=== PATIENT | male | born 1995 | race Hispanic/Latino ===

== ENCOUNTER 2018-01-07 12:41 | Emergency (ER) | payer SELFPAY ==
[2018-01-07] MEDS ORDERED: ONDANSETRON HCL INJ 2 MG/ML VIAL ONE (15:37)
[2018-01-07] MEDS ORDERED: SODIUM CHLORIDE 0.9% 1000ML 1,000 ML ONE (15:37)
[2018-01-07] MEDS ORDERED: PANTOPRAZOLE 40 MG 10ML VIAL ONE (15:41)
--- NOTE | 2018-01-07 18:49 | Diagnostic Imaging Report ---
EXAM: CT Abdomen and Pelvis WITHOUT contrast INDICATION: Pain COMPARISON: None. TECHNIQUE: Abdomen and Pelvis was scanned utilizing a multidetector helical scanner without the use of IV contrast. Coronal and sagittal reformations were obtained. IV CONTRAST: None COMPLICATIONS: None RADIATION DOSE: Total DLP: 606 mGy*cm Estimated effective dose: (DLP x 0.015 x size factor) mSv CTDIvol has been reviewed. It is below the limits set by the Radiation Protocol Committee (RPC). FINDINGS: Abdomen: Lung Bases: No acute findings. Solid Organs: Liver, adrenals, kidneys, spleen, and pancreas unremarkable. Upper GI Tract: No small bowel obstructive changes. Vascularity: No aortic aneurysm. Left SVC incidentally noted. Lymph Nodes: No suspicious adenopathy. Other: None. Pelvis: Bladder: Unremarkable. Other: None. Colon: No acute colonic findings. Appendix not dilated. No periappendiceal inflammation. Bones: No acute findings. IMPRESSION: 1. No acute findings. Signed by: Dr. Diego Shelton MD on 01/07/2018 6:46 PM
[2018-01-07 19:48] LABS: AMPHETAMINES SCREEN,URINE NEGATIVE (NEGATIVE); BENZODIAZEPINES SCREEN,URINE NEGATIVE (NEGATIVE); PHENCYCLIDINE SCREEN,URINE NEGATIVE (NEGATIVE)
[2018-01-07 19:55] LABS: CLARITY,URINE SL CLOUDY (CLEAR); COLOR,URINE YELLOW (YELLOW)
[2018-01-07 19:56] LABS: BILIRUBIN,URINE NEGATIVE (NEGATIVE); KETONES,URINE 2+ (NEGATIVE); LEUKOCYTE ESTERASE ,URINE NEGATIVE (NEGATIVE); NITRITE,URINE NEGATIVE (NEGATIVE); PROTEIN,URINE DIPSTICK NEGATIVE (NEGATIVE); URINE UROBILINOGEN 0.2 mg/dL (0.2 - 1)
[2018-01-07 19:57] LABS: BACTERIA,URINE FEW /HPF; EPITHELIAL CELLS,URINE FEW /LPF; RBC,URINE 0-5 /HPF (0-5)
[2018-01-07 19:58] LABS: ANION GAP 16.8 mmol/L (8-16); BLOOD UREA NITROGEN 10 mg/dL (7-26); BUN/CREATININE RATIO 12 (6-25); CARBON DIOXIDE 24 mmol/L (22-29); CHLORIDE 105 mmol/L (98-107); CREATININE, SERUM 0.86 mg/dL (0.72-1.25); EST GLOMERULAR FILTRATION RATE > 60 ML/MIN (60-); POTASSIUM 3.8 mmol/L (3.5-5.1); SODIUM 142 mmol/L (136-145)
[2018-01-07 19:59] LABS: ALANINE AMINOTRANSFERASE 13 IU/L (0-55); GLUCOSE 104 mg/dL (74-118)
[2018-01-07 20:00] LABS: ALBUMIN/GLOBULIN RATIO 1.9 (0.8-2.0); ALKALINE PHOSPHATASE 53 IU/L (40-150)
[2018-01-07 20:02] LABS: AMYLASE 34 U/L (25-125); LIPASE 18 U/L (8-78)
[2018-01-07 20:05] VITALS: BP 120/91
[2018-01-07 20:05] LABS: BASOPHILS % 0.1 % (0.0-1.0); EOSINOPHILS % 0.3 % (0.0-6.0); HEMATOCRIT 44.4 % (38.2-49.6); HEMOGLOBIN 15.3 g/dL (14.0-18.0); LYMPHOCYTES # (AUTO) 1.9 (1.0-3.2); LYMPHOCYTES % 18.9 % (18.0-39.1); MEAN CORPUSCULAR HEMOGLOBIN 31.4 pg (28-32); MEAN CORPUSCULAR HGB CONC 34.5 g/dL (31-35); MEAN CORPUSCULAR VOLUME 91.2 fL (81-99); MONOCYTES # (AUTO) 0.6 (0.2-0.8); MONOCYTES % 6.5 % (4.4-11.3); NEUTROPHILS # (AUTO) 7.2 (2.1-6.9); NEUTROPHILS % 73.8 % (38.7-80.0); PLATELET COUNT 219 x10e3/uL (140-360); RED BLOOD COUNT 4.87 x10e6/uL (4.3-5.7)
[2018-01-07 20:11] LABS: MAGNESIUM 2.7 MG/DL (1.3-2.1)
== END 2018-01-07 20:21 | disposition home or self-care (01) ==
LOC: ER 15:15
DX: R10.84 Generalized abdominal pain (principal); K29.00 Acute gastritis without bleeding; F12.90 Cannabis use, unspecified, uncomplicated
CPT/HCPCS: 36415; 74176; 80053; 80307; 81001; 82150; 83690; 83735; 85025; 93005; 99284; J2405; J7030

== ENCOUNTER 2021-04-26 01:00 | Inpatient (IN) | payer SELFPAY ==
[~2021-04-26] VITALS: Ht 167.6 cm; Wt 87.5 kg
[2021-04-26] VITALS (9 sets, daily range): BP systolic 99–132; BP diastolic 51–87
[2021-04-26 01:48] LABS: BASOPHILS % 0.1 % (0.0-1.0); EOSINOPHILS % 0.1 % (0.0-6.0); HEMATOCRIT 51.3 % (38.2-49.6); HEMOGLOBIN 17.5 g/dL (14.0-18.0); LYMPHOCYTES # (AUTO) 2.5 (1.0-3.2); LYMPHOCYTES % 16.7 % (18.0-39.1); MEAN CORPUSCULAR HEMOGLOBIN 30.8 pg (28-32); MEAN CORPUSCULAR HGB CONC 34.1 g/dL (31-35); MEAN CORPUSCULAR VOLUME 90.2 fL (81-99); MONOCYTES # (AUTO) 1.7 (0.2-0.8); MONOCYTES % 11.2 % (4.4-11.3); NEUTROPHILS # (AUTO) 10.5 (2.1-6.9); NEUTROPHILS % 71.5 % (38.7-80.0); PLATELET COUNT 281 x10e3/uL (140-360); RED BLOOD COUNT 5.69 x10e6/uL (4.3-5.7); RED CELL DISTRIBUTION WIDTH 12.6 % (11.7-14.4)
[2021-04-26 02:06] LABS: AMYLASE 144 U/L (25-125); LIPASE 280 U/L (8-78)
[2021-04-26 02:09] LABS: ALBUMIN 5.5 g/dL (3.5-5.0); ALBUMIN/GLOBULIN RATIO 1.8 (0.8-2.0); ANION GAP 22.8 mmol/L (8-16); CREATININE, SERUM 1.39 mg/dL (0.72-1.25); POTASSIUM 3.8 mmol/L (3.5-5.1)
[2021-04-26] MEDS ORDERED: SODIUM CHLORIDE 0.9% 1000ML 1,000 ML ONE (02:29)
[2021-04-26] MEDS ORDERED: SODIUM CHLORIDE 0.9% 1000ML 1,000 ML IV ONE (02:30)
[2021-04-26] MEDS ORDERED: SODIUM CHLORIDE 0.9% 50ML 50 ML ONE (02:55)
[2021-04-26] MEDS ORDERED: IOPAMIDOL 370 MG/ML 200 ML INFUS..BTL INJ ONE (02:55)
[2021-04-26] MEDS: SODIUM CHLORIDE 0.9% 1000ML 1,000 ML IV SCH ×2 (04:08→10:30)
[2021-04-26] MEDS: FAMOTIDINE 20 MG TAB PO SCH ×2 (07:30→16:07)
[2021-04-26] MEDS: SENNOSIDES 8.6 MG TAB PO SCH (09:00)
[2021-04-26] MEDS: ONDANSETRON HCL INJ 2MG/ML 2ML 2 MG/ML VIAL IV PRN ×2 (09:10→18:00)
[2021-04-26] MEDS: HYDROMORPHONE 1MG/1ML INJ IV PRN ×2 (09:10→18:00)
[2021-04-26] MEDS ORDERED: LACTATED RINGER'S 1,000 ML IV ONE (11:00)
[2021-04-26 11:53] LABS: CLARITY,URINE CLEAR (CLEAR); COLOR,URINE YELLOW (YELLOW); KETONES,URINE 1+ (NEGATIVE); LEUKOCYTE ESTERASE ,URINE NEGATIVE (NEGATIVE); NITRITE,URINE NEGATIVE (NEGATIVE); PROTEIN,URINE DIPSTICK NEGATIVE (NEGATIVE)
[2021-04-26 11:55] LABS: AMPHETAMINES SCREEN,URINE NEGATIVE (NEGATIVE); BENZODIAZEPINES SCREEN,URINE NEGATIVE (NEGATIVE); PHENCYCLIDINE SCREEN,URINE NEGATIVE (NEGATIVE)
[2021-04-26 11:56] LABS: URINE UROBILINOGEN 0.2 mg/dL (0.2 - 1)
[2021-04-26 12:11] LABS: BACTERIA,URINE FEW /HPF; EPITHELIAL CELLS,URINE FEW /LPF; RBC,URINE 0-5 /HPF (0-5); WBC,URINE (MAN) 0-5 /HPF (0-5)
[2021-04-26] MEDS: LACTATED RINGER'S 1,000 ML INJ SCH ×4 (14:13→22:11)
[2021-04-27] VITALS (7 sets, daily range): BP systolic 102–126; BP diastolic 60–75
[2021-04-27] MEDS ORDERED: DONNATAL/LIDOCAINE/MAALOX 30 ML SUSP PO ONE
[2021-04-27] MEDS: ACETAMINOPHEN 325 MG TAB PO PRN (00:49)
[2021-04-27] MEDS: ONDANSETRON HCL INJ 2MG/ML 2ML 2 MG/ML VIAL IV PRN ×5 (00:49→20:48)
[2021-04-27] MEDS: HYDROMORPHONE 1MG/1ML INJ IV PRN ×5 (00:49→20:48)
[2021-04-27] MEDS: LACTATED RINGER'S 1,000 ML INJ SCH ×7 (02:12→23:09)
[2021-04-27 06:04] LABS: BASOPHILS % 0.1 % (0.0-1.0); EOSINOPHILS # (AUTO) 0.1 (0.0-0.4); EOSINOPHILS % 0.8 % (0.0-6.0); HEMOGLOBIN 13.3 g/dL (14.0-18.0); LYMPHOCYTES # (AUTO) 3.7 (1.0-3.2); LYMPHOCYTES % 38.2 % (18.0-39.1); MEAN CORPUSCULAR HEMOGLOBIN 31.2 pg (28-32); MEAN CORPUSCULAR HGB CONC 33.3 g/dL (31-35); MEAN CORPUSCULAR VOLUME 93.9 fL (81-99); MONOCYTES # (AUTO) 1.1 (0.2-0.8); MONOCYTES % 11.8 % (4.4-11.3); NEUTROPHILS # (AUTO) 4.7 (2.1-6.9); NEUTROPHILS % 48.8 % (38.7-80.0); PLATELET COUNT 192 x10e3/uL (140-360); RED BLOOD COUNT 4.26 x10e6/uL (4.3-5.7); RED CELL DISTRIBUTION WIDTH 12.7 % (11.7-14.4)
[2021-04-27 06:23] LABS: ALBUMIN 3.7 g/dL (3.5-5.0); ALBUMIN/GLOBULIN RATIO 1.9 (0.8-2.0); ANION GAP 12.6 mmol/L (8-16); CALCIUM 8.4 mg/dL (8.4-10.2); CREATININE, SERUM 0.71 mg/dL (0.72-1.25); POTASSIUM 3.6 mmol/L (3.5-5.1)
[2021-04-27] MEDS: FAMOTIDINE 20 MG TAB PO SCH ×2 (07:30→16:31)
[2021-04-27] MEDS: SENNOSIDES 8.6 MG TAB PO SCH (08:06)
[2021-04-28] VITALS (8 sets, daily range): BP systolic 114–133; BP diastolic 68–77
[2021-04-28] MEDS: LACTATED RINGER'S 1,000 ML INJ SCH ×6 (02:38→21:01)
[2021-04-28] MEDS: HYDROMORPHONE 1MG/1ML INJ IV PRN ×4 (02:43→21:00)
[2021-04-28] MEDS: ONDANSETRON HCL INJ 2MG/ML 2ML 2 MG/ML VIAL IV PRN ×3 (02:43→16:37)
[2021-04-28] MEDS: FAMOTIDINE 20 MG TAB PO SCH ×2 (08:55→16:37)
[2021-04-28] MEDS: SENNOSIDES 8.6 MG TAB PO SCH (08:55)
[2021-04-28 09:14] LABS: ANION GAP 12.7 mmol/L (8-16); CALCIUM 8.9 mg/dL (8.4-10.2); CREATININE, SERUM 0.77 mg/dL (0.72-1.25); POTASSIUM 3.7 mmol/L (3.5-5.1)
[2021-04-28] MEDS ORDERED: MAGNESIUM/ALUMINUM/SIMETHICONE 30 ML UDC PO PRN (18:00)
[2021-04-29] MEDS: ONDANSETRON HCL INJ 2MG/ML 2ML 2 MG/ML VIAL IV PRN ×5 (00:37→19:35)
[2021-04-29] MEDS: HYDROMORPHONE 1MG/1ML INJ IV PRN ×3 (02:16→19:35)
[2021-04-29 03:59] VITALS: BP 123/76
[2021-04-29] MEDS: LACTATED RINGER'S 1,000 ML INJ SCH ×5 (04:00→18:20)
[2021-04-29 05:48] LABS: BASOPHILS % 0.2 % (0.0-1.0); EOSINOPHILS # (AUTO) 0.3 (0.0-0.4); EOSINOPHILS % 2.7 % (0.0-6.0); HEMATOCRIT 42.6 % (38.2-49.6); HEMOGLOBIN 14.3 g/dL (14.0-18.0); LYMPHOCYTES # (AUTO) 3.4 (1.0-3.2); LYMPHOCYTES % 33.4 % (18.0-39.1); MEAN CORPUSCULAR HGB CONC 33.6 g/dL (31-35); MEAN CORPUSCULAR VOLUME 92.4 fL (81-99); MONOCYTES # (AUTO) 0.9 (0.2-0.8); NEUTROPHILS # (AUTO) 5.5 (2.1-6.9); NEUTROPHILS % 54.4 % (38.7-80.0); PLATELET COUNT 192 x10e3/uL (140-360); RED BLOOD COUNT 4.61 x10e6/uL (4.3-5.7); RED CELL DISTRIBUTION WIDTH 12.1 % (11.7-14.4)
[2021-04-29 06:16] LABS: ALBUMIN 4.1 g/dL (3.5-5.0); ANION GAP 12.8 mmol/L (8-16); CALCIUM 9.1 mg/dL (8.4-10.2); CREATININE, SERUM 0.71 mg/dL (0.72-1.25); POTASSIUM 3.8 mmol/L (3.5-5.1)
[2021-04-29] MEDS: ACETAMINOPHEN 325 MG TAB PO PRN (07:15)
[2021-04-29 08:18] VITALS: BP 131/76
[2021-04-29] MEDS: FAMOTIDINE 20 MG TAB PO SCH ×2 (08:19→16:45)
[2021-04-29] MEDS: SENNOSIDES 8.6 MG TAB PO SCH (08:19)
[2021-04-29 11:49] VITALS: BP 122/79
[2021-04-29 16:13] VITALS: BP 126/82
[2021-04-29 20:00] VITALS: BP 115/68
[2021-04-29] MEDS ORDERED: METOCLOPRAMIDE HCL 10 MG/2ML VIAL IV STA (22:56)
[2021-04-29] MEDS: Pantoprazole IV 40 MG in SODIUM CHLORIDE 0.9% 50ML 50 ML IV SCH (23:00)
[2021-04-29] MEDS ORDERED: DONNATAL/LIDOCAINE/MAALOX 30 ML SUSP PO ONE (23:15)
[2021-04-30] VITALS (8 sets, daily range): BP systolic 108–137; BP diastolic 50–92
[2021-04-30] MEDS: HYDROMORPHONE 1MG/1ML INJ IV PRN ×5 (01:45→20:36)
[2021-04-30] MEDS: ONDANSETRON HCL INJ 2MG/ML 2ML 2 MG/ML VIAL IV PRN ×3 (01:45→10:45)
[2021-04-30] MEDS: Pantoprazole IV 40 MG in SODIUM CHLORIDE 0.9% 50ML 50 ML IV SCH ×4 (04:00→20:35)
[2021-04-30] MEDS: ACETAMINOPHEN 325 MG TAB PO PRN (04:47)
[2021-04-30] MEDS: METOCLOPRAMIDE HCL 10 MG/2ML VIAL IV SCH ×4 (07:30→20:35)
[2021-04-30 07:44] LABS: HEMATOCRIT 43.5 % (38.2-49.6); HEMOGLOBIN 14.5 g/dL (14.0-18.0); MEAN CORPUSCULAR HEMOGLOBIN 30.9 pg (28-32); MEAN CORPUSCULAR HGB CONC 33.3 g/dL (31-35); MEAN CORPUSCULAR VOLUME 92.8 fL (81-99); PLATELET COUNT 192 x10e3/uL (140-360); RED BLOOD COUNT 4.69 x10e6/uL (4.3-5.7); RED CELL DISTRIBUTION WIDTH 12.3 % (11.7-14.4)
[2021-04-30 08:07] LABS: ANION GAP 12.9 mmol/L (8-16); CALCIUM 9.6 mg/dL (8.4-10.2); CREATININE, SERUM 0.74 mg/dL (0.72-1.25); POTASSIUM 3.9 mmol/L (3.5-5.1)
[2021-04-30 08:36] LABS: EOSINOPHILS % (MANUAL) 1 % (0-7); LYMPHOCYTES % (MANUAL) 35 % (19-48); MONOCYTES % (MANUAL) 6 % (3.4-9.0); NEUTROPHILS % (MANUAL) 58 % (40-74); PLATELET ESTIMATE ADEQUATE; PLATELET MORPHOLOGY COMMENT FEW LARGE; RBC MORPHOLOGY COMMENT NORMAL
[2021-04-30] MEDS: SENNOSIDES 8.6 MG TAB PO SCH (09:00)
[2021-04-30] MEDS: LACTATED RINGER'S 1,000 ML INJ SCH ×3 (12:50→23:49)
[2021-04-30] MEDS: Morphine 4mg Syringe 4 MG/ML INJ IV PRN (23:56)
[2021-05-01 00:16] VITALS: BP 109/60
[2021-05-01] MEDS: Pantoprazole IV 40 MG in SODIUM CHLORIDE 0.9% 50ML 50 ML IV SCH ×2 (00:42→04:22)
[2021-05-01] MEDS: ONDANSETRON HCL INJ 2MG/ML 2ML 2 MG/ML VIAL IV PRN (04:05)
[2021-05-01] MEDS: LACTATED RINGER'S 1,000 ML INJ SCH ×2 (04:12→09:10)
[2021-05-01 06:02] VITALS: BP 122/62
[2021-05-01] MEDS: Morphine 4mg Syringe 4 MG/ML INJ IV PRN ×2 (06:10→13:32)
[2021-05-01 07:42] VITALS: BP 125/70
[2021-05-01 08:00] VITALS: BP 125/70
[2021-05-01] MEDS: METOCLOPRAMIDE HCL 10 MG/2ML VIAL IV SCH ×2 (09:10→11:30)
[2021-05-01] MEDS: SENNOSIDES 8.6 MG TAB PO SCH (09:10)
[2021-05-01 12:24] VITALS: BP 124/72
[2021-05-01] MEDS ORDERED: KETOROLAC TROMETHAMINE 30 MG/ML VIAL IV SCH (14:00)
[2021-05-01] MEDS ORDERED: ONDANSETRON HCL INJ 2MG/ML 2ML 2 MG/ML VIAL IV PRN (14:15)
[2021-05-01 15:38] VITALS: BP 131/63
[2021-05-01] MEDS ORDERED: METOCLOPRAMIDE HCL 10 MG/2ML VIAL IV PRN (16:30)
== END 2021-05-01 16:26 | disposition left against medical advice (07) | DRG 439 ==
LOC: ER 01:02 → ERHOLD 03:46 → MED/SURG 05:07 → OBSVTOIN 04-27 11:29
PROVIDERS: ADMIT Internal Medicine; ATTEND Internal Medicine
DX: K85.20 Alcohol induced acute pancreatitis without necrosis or infection (principal); N17.9 Acute kidney failure, unspecified; M62.82 Rhabdomyolysis; E87.1 Hypo-osmolality and hyponatremia; E80.6 Other disorders of bilirubin metabolism; F10.21 Alcohol dependence, in remission; E86.0 Dehydration; F19.10 Other psychoactive substance abuse, uncomplicated; K82.8 Other specified diseases of gallbladder; K81.1 Chronic cholecystitis; K21.9 Gastro-esophageal reflux disease without esophagitis; F12.90 Cannabis use, unspecified, uncomplicated; R11.2 Nausea with vomiting, unspecified
CPT/HCPCS: 36415; 74177; 78227; 80048; 80053; 80307; 81001; 82150; 82550; 82553; 83690; 84478; 84484; 85007; 85025; 85027; 93005; 96361; 99284; A9537; G0378; J1170; J2270; J2405; J2765; J7030; J7121; Q9967; U0002